=== PATIENT | male | born 1955 | race African-American/Black ===

== ENCOUNTER 2016-10-27 19:24 | Emergency (ER) | payer SELFPAY ==
[~2016-10-27] VITALS: Ht 182.9 cm; Wt 79.0 kg
[2016-10-27 19:35] VITALS: Ht 182.9 cm; Wt 79.0 kg
== END 2016-10-27 20:00 | disposition left against medical advice (07) ==
LOC: E/R 19:24
DX: Z53.21 Procedure and treatment not carried out due to patient leaving prior to being seen by health care provider (principal)